=== PATIENT | female | born 1965 | race Caucasian/White ===

== ENCOUNTER 2020-10-22 12:50 | Outpatient (REF) | payer BC, SELFPAY ==
[2020-10-23 09:44] LABS: Hepatitis B Surface Ag Negative (Negative)
[2020-10-23 10:27] LABS: Hepatitis C Ab w Rflx HCV PCR Negative (Negative)
[2020-10-23 10:40] LABS: HIV-1/2 Ag & Ab Screen Negative (Negative)
[2020-10-23 11:18] LABS: Syphilis Serology (RPR) Negative (Negative)
[2020-10-23 14:13] LABS: Chlamydia Result Negative (Negative); GC Result Negative (Negative)
== END 2020-10-22 12:51 | disposition home or self-care (01) ==
LOC: NCHCN 12:50
PROVIDERS: Visit Provider Nurse Practitioner Family
DX: R30.9 Painful micturition, unspecified (principal); Z11.3 Encounter for screening for infections with a predominantly sexual mode of transmission; Z11.4 Encounter for screening for human immunodeficiency virus [HIV]; Z11.59 Encounter for screening for other viral diseases
CPT/HCPCS: 86803; 87340; 87389; 87491; 87591; 86592; 87480; 87510; 87660

== ENCOUNTER 2020-12-10 01:02 | Outpatient (CLI) | payer BC, SELFPAY ==
--- NOTE | 2020-12-10 07:30 | DI.US_ITS ---
Exam(s) US PELVIS TRANSVAGINAL EXAM: US PELVIS TRANSVAGINAL CLINICAL HISTORY: Heavy perimenopasual bleeding,N92.4 TECHNIQUE: Ultrasound of the pelvis was performed both transabdominal and transvaginal. COMPARISON: No exams were available for comparison FINDINGS: UTERUS: Measures 9 cm length x 5 cm AP x 6.5 cm wide. There is finding at the level the fundus which is probably a fibroid measuring 3.6 x 4.6 x 3.8 cm. Endometrial thickness measures 7 mm. There is no fluid in the endometrial canal. CERVIX: There are no obvious nabothian cysts. RIGHT OVARY: Measures 3.6 x 2.6 x 3.1 cm Contains what is either hemorrhagic or complicated cyst measuring 3 x 3.1 x 3.4 cm. Requires follow- up. No free fluid. LEFT OVARY: Measures 0.5 x 1.6 x 1.9 cm cm No significant cysts nor masses evident in the left ovary. CUL-DE-SAC: No free fluid evident. Incidentally noted is a 1.4 x 1.4 cm cortical cyst in the right kidney. IMPRESSION: 1. There is a 3.6 x 4.6 cm probable fibroid the uterine fundus. Endometrial thickness is upper ld l 2. Complicated or hemorrhagic cyst in the right ovary measuring 3 x 3.1 x 3.4 cm. Recommend follow-u p ultrasound affect appropriate clinical interval. 3. No free fluid evident in the adnexal regions and cul-de-sac. Incidentally noted is cyst in the right kidney measuring 1.4 x 1.4 cm DATA REPOSITORY:
--- NOTE | 2020-12-10 07:38 | DI.MAMMO_ITS ---
Exam(s) MAMMO SCREENING EXAM: MAMMO SCREENING CLINICAL HISTORY: breast cancer screening TECHNIQUE: Bilateral full field digital CC and MLO mammographic images were obtained with 3D tomosyn thesis and utilizing computer aided detection (CAD). COMPARISON: Available for comparison. FINDINGS: Masses/Architectural Distortion: None seen. Microcalcifications: No suspicious pleomorphic-type are seen. Skin Thickening/Nipple Retraction: None. IMPRESSION: 1. No significant interval change with no specific features of malignancy noted. 2. Unless there is more urgent need, screening mammography is recommended, as per [place] [employer] guidelines. BI-RADS Category 1 - Negative Breast Density - Category C - Heterogeneously dense Breast density category C or D implies that the patient has dense breast tissue. Dense breast tissue is very common and is not abnormal but dense breast tissue can make it harder to find cancer on a ma mmogram. Also, dense breast tissue may increase their breast cancer risk. This information about the result of the mammogram report was provided to the patient to raise their awareness. Use this report when you speak with the patient about their risks for breast cancer, which includes their family hist ory. At that time, you may recommend for more screening tests (Ultrasound or MRI) as they might be us eful based on their risk. A negative radiographic report should not delay biopsy if a dominant or clinically suspicious mass is present. Up to ten percent of cancers are not identified on mammography. A negative report may reinforce clinical impression. Adenosis and dense breasts may obscure an underlying neoplasm. False positive reports average 6 to 10%. Patient will receive a letter notifying them of these results.
== END 2020-12-10 01:22 ==
PROVIDERS: Visit Provider Obstetrics & Gynecology
DX: Z12.31 Encounter for screening mammogram for malignant neoplasm of breast (principal); N92.4 Excessive bleeding in the premenopausal period; D25.9 Leiomyoma of uterus, unspecified; N83.291 Other ovarian cyst, right side; N28.1 Cyst of kidney, acquired
CPT/HCPCS: 77063; 77067; 76830; 76856

== ENCOUNTER 2020-12-19 15:26 | Outpatient (REF) | payer BC, SELFPAY ==
--- NOTE | 2020-12-19 14:30 | PAPFT_PTH ---
PATIENT: Florecita Yang LOC: [facility] U#:[id number] AGE/SX: 55/F ROOM: RE12/19/[address]: Brooke Watts : 1965 BED: DIS: 12/19/2020 SPEC #: [id number] RECD: 12/19/20 17:39 STATUS: JEANNINE HOOD #: [id number] RAKESH: 12/19/20 14:[address]: Brooke Watts DEPT: [facility] Cytology RECD BY: Poornima Garcia Tissues: 1 - CX/ENDOCX FOR PAP SMEARS Procedures: PAP THIN PREP/UVM Screening HPV DNA PROBE Comments: [id number]
--- NOTE | 2020-12-19 14:30 | ENDOMET_PTH ---
PATIENT: Florecita Yang LOC: [facility] U#:[id number] AGE/SX: 55/F ROOM: RE12/19/[address]: Brooke Watts : 1965 BED: DIS: 12/19/2020 SPEC #: [id number] RECD: 12/19/20 17:35 STATUS: JEANNINE HOOD #: [id number] RAKESH: 12/19/20 14:[address]: Brooke Watts DEPT: Surgical Specimen RECD BY: Poornima Garcia Tissues: 1 - ENDOMETRIUM BX/SUZIE Procedures: GROSS AND MICRO LEVEL 4 Comments: [id number]
== END 2020-12-19 15:27 | disposition home or self-care (01) ==
LOC: LBN 15:26
PROVIDERS: Visit Provider Obstetrics & Gynecology Gynecology
DX: N85.8 Other specified noninflammatory disorders of uterus (principal); N93.8 Other specified abnormal uterine and vaginal bleeding; Z12.4 Encounter for screening for malignant neoplasm of cervix; Z11.51 Encounter for screening for human papillomavirus (HPV)
CPT/HCPCS: 88142; 88305; 87624

== ENCOUNTER 2021-02-24 20:51 | Emergency (ER) | payer OTHER, SELFPAY ==
[2021-02-24 21:04] VITALS: BP 149/83; PULSE 68; RESP 18; TEMP 36; O2SAT 97
--- NOTE | 2021-02-24 21:43 | W.ED.GENAD ---
Discharge Plan Disposition Patient Disposition: HOME Condition: Stable Discharge Details Clinical Impression: Acute viral syndrome Primary Care Provider: Unknown,Unknown ED Provider: Poornima Rosario Home Meds and New Rx's Prescriptions: Continued dexmethylphenidate [Focalin XR] 20 mg capsule,ER biphasic 50-50 20 mg PO DAILY RF: 0 Premarin 0.625 mg/gram cream 0.625 mg vaginal .COMPLEX Qty: 30 RF: 10 Discharge Instructions Additional Instructions: Please isolate until the results of your Covid test return, this can take up to 36 hours, will notify you if they are positive, you may also check your portal result Please return should you develop new or worsening complaints Stand Alone Forms: PENDING COVID-19 TESTING Discharge Data Discharge Date/Time-TO BE ENTERED AT DEPARTURE: 02/24/21 22:10 Medical Decision Making Patient instructed to isolate until her Covid test returns Stable vitals Return precautions discussed and patient expressed understanding, discharged home with oxygen saturation of 97%, respirations 18, pulse 68 Medical Records Medical records reviewed: Yes I reviewed the patient's medical records. HPI General Mode of arrival: ambulatory. Date/Time Provider Initiated Documentation: 02/24/21 21:43. Limitations to Documentation: no limitations. Information obtained by: patient. HPI Narrative: This 55-year-old female presents with report of sore throat 2 weeks ago. She states she just returned from [facility] and has had runny new, sore throat, and intermittent cough. She states that she is feeling well today aside from a mild sore throat. She denies any chest pain or shortness of breath. Her son is sick with similar symptoms. She denies fever or chills. She states she is otherwise healthy. She is not vaccinated for COVID-19. She denies known exposure. Denies globus sensation Related Data Home Medications Medication Instructions Recorded Confirmed dexmethylphenidate 20 mg 20 mg PO DAILY 11/16/20 12/19/20 capsule,extended release [id number] conjugated estrogens 0.625 mg/gram 0.625 mg VAGINAL .COMPLEX #30 g 01/25/21 01/25/21 vaginal cream Previous Rx's Medication Instructions Recorded conjugated estrogens 0.625 mg/gram 0.625 mg VAGINAL .COMPLEX #30 g 01/25/21 vaginal cream Allergies Allergy/AdvReac Type Severity Reaction Status Date / Time codeine Allergy Mild Verified 02/24/21 21:09 General Stated Complaint: Sorethroat ILENE: 4 Review of Systems All systems reviewed & are unremarkable except as noted in HPI and below PFSH Medical History (Updated 02/24/21 @ 21:48 by TOSHIA Sanchez) Ashkenazi Nondenominational ancestry requiring population-specific genetic screening Dyspareunia History of endometrial biopsy Perimenopausal menorrhagia Surgical History (Updated 12/19/20 @ 17:24 by Brooke Watts MD) Hx of section Social History (Updated 12/19/20 @ 17:25 by Brooke Watts MD) Smoking/Tobacco Use Status: Former Tobacco Use Quit Date: 07/21/96 Smoking risk assessment performed?: Yes Drug use: Never Household members: children and other Details: Son-15yo, Number of Children: 1 Do you feel safe at home: Yes Do you feel safe in your relationship?: Yes Exam Const General: cooperative, comfortable and no acute distress HENMT Other: Uvula midline, oropharynx patent Resp Effort & Inspection: normal respiratory effort Cardio Rate: regular rate Rhythm: regular rhythm Skin General skin exam: no rashes or lesions noted Neuro General: patient alert and patient oriented x3 Course Vital Signs Vital signs: Vital Signs Temperature 36 C L 02/24/21 21:04 Pulse 68 02/24/21 21:04 Respiratory Rate 18 02/24/21 21:04 Blood Pressure 149/83 H 02/24/21 21:04 Pulse Oximetry 97 02/24/21 21:04 Temperature 36 C L 02/24/21 21:04 Pulse 68 02/24/21 21:04 Respiratory Rate 18 02/24/21 21:04 Blood Pressure 149/83 H 02/24/21 21:04 Blood Pressure Position Sitting 02/24/21 21:04 Pulse Oximetry 97 02/24/21 21:04 Oxygen Delivery Method Room Air 02/24/21 21:04 Oxygen Flow Rate 0 02/24/21 21:04
[2021-02-26 14:07] LABS: COVID-19 RT-PCR UVMMC Result Negative (Negative)
--- NOTE | 2021-02-26 17:03 | NUR.NOTE ---
Nursing Note: Received call from patient inquiring about covid results. Pt was notified that her covid test was negative.
== END 2021-02-24 22:10 | disposition home or self-care (01) ==
PROVIDERS: Emergency Provider Physician Assistant
DX: B34.9 Viral infection, unspecified (principal); R05 Cough; Z20.822 Contact with and (suspected) exposure to COVID-19
CPT/HCPCS: 99281; U0003; U0005; 99282

== ENCOUNTER 2021-08-19 14:05 | Outpatient (REF) | payer OTHER, SELFPAY | END 2021-08-19 14:06 | disposition home or self-care (01) | LOC: LBN 14:05 | PROVIDERS: Visit Provider Family Medicine | DX: R35.0 Frequency of micturition (principal) | CPT/HCPCS: 87086 ==

== ENCOUNTER 2022-11-21 00:37 | Outpatient (CLI) | payer OTHER, SELFPAY ==
--- NOTE | 2022-11-21 | DI.MAMMO_ITS ---
Exam(s) MAMMO SCREENING EXAM: MAMMO SCREENING CLINICAL HISTORY: SCREENING,[facility],Z00.00. TECHNIQUE: Bilateral full field digital CC and MLO mammographic images were obtained with 3D tomosyn thesis and utilizing computer aided detection (CAD). COMPARISON: Prior mammograms were reviewed. FINDINGS: There has been no significant change in the appearance and distribution of the fibroglandular tissue. Asymmetric densities in both breasts are unchanged from prior mammograms. There are no obvious new spiculated masses nor malignant appearing microcalcification groups. There is no significant architectural distortion nor skin thickening-retraction. IMPRESSION: Dense bilateral fibroglandular tissue. No obvious radiographic evidence of malignancy nor significan t change compared to prior mammograms.. BI-RADS Category 2 - Benign Findings Breast Density - Category C - Heterogeneously dense Breast density Category C or D implies that the patient has dense breast tissue. Dense breast tissue can make it harder to find cancer on a mammogram. Dense breast tissue is also associated with an incr eased risk of breast cancer. This information about the result of the mammogram report was provided to the patient to raise their awareness. Use this report when you speak with the patient about their risks for breast cancer, which includes their family history. At that time, you may recommend additional screening tests (Ultrasoun d or MRI) as these tests may add significant information. A negative radiographic report should not delay biopsy if a dominant or clinically suspicious mass is present. Up to ten percent of cancers are not identified on mammography. A negative report may reinforce clinical impression. Adenosis and dense breasts may obscure an underlying neoplasm. False positive reports average 6 to 10%. Patient will receive a letter notifying them of these results.
== END 2022-11-21 00:57 ==
LOC: DI 00:37
PROVIDERS: PCP Nurse Practitioner Family; Visit Provider Nurse Practitioner Family
DX: Z00.00 Encounter for general adult medical examination without abnormal findings (principal); R92.8 Other abnormal and inconclusive findings on diagnostic imaging of breast
CPT/HCPCS: 77063; 77067

== ENCOUNTER 2023-02-06 09:10 | Day surgery (SDC) | payer OTHER, SELFPAY ==
--- NOTE | 2023-02-05 15:58 | W.COLOREPORT ---
Date of service: 02/06/23 Time of Service: 10:44 Colonoscopy Report Date of procedure: 02/06/23 Pre-op diagnosis general: Colorectal cancer screening Post-op diagnosis procedure note: same Surgeon: Cassie Valencia Anesthesia Type: General:No Airway Estimated blood loss (mL): 0 Pathology: none sent Complications: None Disposition: same day Prep: Miralax/Dulcolax Retraction Time: 7 Procedure Description: After informed consent was obtained the patient was taken to the procedure room and placed in a left decubitous position. Monitors were applied and a time out was done. The patients name, date of , procedure, allergies to medications and metal in their body was reviewed. The patient was then sedated. Once sedated and comfortable a rectal exam was done. External exam was normal. Internal exam revealed a normal sphincter tone and no palpable masses. The scope was then introduced and retrofelexed. No internal hemorrhoids were identified. The scope was then advanced to the cecum w/ some difficulty. Her colon was rather tortuous and it was difficult to maneuver into the right colon. The TI and appendiceal orifice were identified. The prep was BBPS 3 in all segments for a total of 9. The scope was then slowly retracted over 7 minutes back into the rectum. There are no polyps, AVMs, or diverticula visualized. Mucosa is pink and healthy with a normal vascular pattern.. The scope was removed and the patient was woken up and taken back to Same day surgery in stable condition. The patient tolerated the procedure well and there were no immediate complications. Follow up: The patient should follow up in 10 years unless they develop changes in bowel habits or other new gastrointestinal complaints.
--- NOTE | 2023-02-05 15:59 | PDOC.DSDIS_ITS ---
Date of service: 02/06/23 Time of Service: 10:43 Discharge Plan Disposition Patient Disposition: Home Condition: Good Discharge Details Reason For Visit: Colonoscopy Attending Provider: Cassie Valencia Primary Care Provider: None,None Home Meds and New Rx's Prescriptions: Discontinued bisacodyl [Dulcolax (bisacodyl)] 5 mg tablet,delayed release (DR/EC) 5 mg PO ONCE Qty: 4 0RF Rx Instructions: Take per colonoscopy instructions provided by ordering providers office polyethylene glycol 3350 17 gram/dose powder 17 g PO ONCE Qty: 238 0RF Rx Instructions: Take per colonoscopy instructions provided by ordering providers office No Action dexmethylphenidate [Focalin XR] 20 mg capsule,ER biphasic 50-50 20 mg PO DAILY Premarin 0.625 mg/gram cream 0.625 mg vaginal .COMPLEX Qty: 30 10RF Rx Instructions: 0.625 mg vaginal twice weekly Discharge Instructions Additional Instructions: DSU Colonoscopy Post- Op Instructions Instructions for Everyone who is given Anesthesia: For your safety, please do the following for the next twenty-four (24) hours: *Do Not operate a motor vehicle (car, truck, motorcycle, etc.) *Do Not drink alcoholic beverages or use any recreational drugs for the first 24 hours or while taking pain medications. The medications in your body may have a reaction that can be dangerous. *Do Not make any important decisions or sign any important papers. Findings: Normal scope Follow up: Repeat in 10 years time Of course, you should continue to have a yearly physical exam including a rectal exam. If you should ever notice any pain or difficulty having a bowel movement, blood in the stool, unexplained weight loss, or change in your bowel habits, please contact your health provider 1. No lifting over 20 pounds or strenuous activity for the first 24 hours after your procedure. After 24 hours there are no restrictions on your activity but you may feel fatigued for a few days. 2. After you arrive home you may have a light meal and return to your normal d iet as you can tolerate it without feeling sick to your stomach. 3. You may have a bloated, gaseous feeling in your belly (abdomen) after a colonoscopy. Passing gas and belching will help. Walking or lying down on your left side with your knees flexed may relieve the discomfort. Call the office at [phone] (Office) or [phone] (Hospital) right away if you notice any of the following: a.Vomiting of blood or ?coffee ground stools?. b.Rectal bleeding 1Tbsp, blood clots or continuous bleeding. c.Severe belly (abdominal) pain. d.A hard distended belly (abdomen) and an inability to pass gas. 4. Please don?t expect to have a normal BM (bowel movement) for 2-3 days after your procedure. 5. If there are questions regarding the findings of your procedure, please contact your doctor 6. If you are unable to contact your doctor with a problem, contact the hospital at [phone]. 7. Continue all your regular medications unless directed otherwise. I understand the above instructions and have no questions. Signature of Patient or Adult Escort Name of Responsible Adult Escort Signature of Nurse Date/Time Activity:: See above Diet:: See above Discharge Orders Discharge Orders: Discharge Order (Routine); Ordered 02/06/23 Ordered By: Cassie Valencia DS: Diagnosis Discharge Diagnosis (1) Screening for malignant neoplasm of colon performed: Status: Acute Asessment and Plan: The patient is seen and examined after their colonoscopy.? The patient has been able to pass gas.? They are not having abdominal pain.? They have been able to tolerate liquids and a snack.? They do not have any nausea or vomiting.? They are not having any chest pain or shortness of breath.??? They are not having any rectal bleeding. Their vital signs have been stable-see nursing notes. We discussed findings during their colonoscopy, and any biopsies that were done/polyps that were removed. The patient will be sent a letter with any biopsy results, and when to repeat the colonoscopy.-see discharge instructions. Patient was given explicit instructions to follow-up regarding colonoscopy-refer to discharge instructions.? We reviewed resumption of medications. Patient verbalized understanding and discharged in stable and satisfactory condition- See nursing notes.
--- NOTE | 2023-02-06 06:18 | W.ANESPRE ---
General Info Date of Service Date Performed: 02/06/23 Height: 5 ft 3 in Weight: 56.699 kg Body Mass Index (BMI): 22.1 Surgical Procedure: Operation Date: 02/06/23 09:50 Proposed Procedure Side Surgeon jadiel Valencia, Meds Allergies and Home Medications Allergies Allergy/AdvReac Type Severity Reaction Status Date / Time codeine Allergy Mild Verified 02/06/23 09:29 Home Medication Medication Instructions Recorded conjugated estrogens 0.625 mg/gram 0.625 mg vaginal .COMPLEX #30 grams 03/12/22 vaginal cream (Premarin) dexmethylphenidate 20 mg 20 mg PO DAILY 01/22/23 capsule,extended release [id number] (Focalin XR) Current Visit Medications: Current Medications Generic Name Dose Route Start Last Admin Trade Name Freq PRN Reason Stop Dose Admin Hyoscyamine Sulfate 0.125 mg 02/06/23 06:59 Hyoscyamine 0.125 Mg Sl/Oral/Chew SL 03/08/23 06:58 DIRECTED PRN Ringer's Solution 1,000 mls @ 80 mls/hr 02/06/23 06:00 IV 02/06/23 16:00 [facility]ION [facility] IV Miscellaneous Supplies 1 each 02/06/23 06:00 Iv Access IV 02/06/23 16:00 DIRECTED MARVIN Ondansetron HCl 4 mg 02/06/23 06:59 Ondansetron 4 Mg/2 Ml Vial IVP 03/08/23 06:58 Q4H PRN PRN Nausea / Vomiting Sodium Chloride 0 ml 02/06/23 06:00 Normal Saline Flush 10 Ml Syr IV 02/06/23 16:00 PRN PRN Sodium Chloride 0 ml 02/06/23 06:00 Normal Saline 10 Ml Vial IJ 02/06/23 16:00 DIRECTED PRN Sterile Water 0 ml 02/06/23 06:00 Water,Injection,Sterile 10 Ml Vial IJ 02/06/23 16:00 DIRECTED PRN PFSH Active Problems Active Problems: Problem Status Onset Code Screening for malignant neoplasm of colon performed Z12.11 ADHD F90.9 Screening for colon cancer Z12.11 Acute viral syndrome B34.9 History of endometrial biopsy Z92.89 Cyst of right ovary N83.201 Encounter for counseling regarding contraception Z30.09 Ashkenazi Mu-Ism ancestry requiring population-specific genetic screening Z13.79 Dyspareunia Perimenopausal menorrhagia N92.4 Surgical History Surgical History Hx of section Tobacco Smoking/Tobacco Use Status: Former Tobacco Use Alcohol Alcohol Intake: current Alcohol intake frequency: a few times a month Substance Use Substance use: Never Substance use type: does not use Vital Signs and Lab Results Vital Signs Most Recent Vital Signs in EMR: Temp Pulse Resp BP Pulse Ox 36.7 C 50 L 18 120/79 100 02/06/23 09:21 02/06/23 09:21 02/06/23 09:21 02/06/23 09:21 02/06/23 09:21 Lab Results Blood Type / Crossmatch: No Data to Display Complete Blood Count: No Data to Display Complete Metabolic Panel: No Data to Display Liver Function Panel: No Data to Display Coagulation Panel: No Data to Display Cardiac Panel: No Data to Display Arterial Blood Gas: No Data to Display Venous Blood Gas: No Data to Display Pancreas Panel: No Data to Display Thyroid Panel: No Data to Display Infectious Disease: No Data to Display Blood Cultures: No Data to Display Toxicology Panel: No Data to Display Anesthesia Assessment and Plan Anesthesia History Personal History: No History of Anesthesia Complications Family History: No Family History of Anesthesia Complications Exercise Tolerance Exercise Tolerance: Metabolic Equivalents>4 Cardiac & Pulmonary Exam Cardiac Exam: Normal S1/S2 Heart Sounds Pulmonary Exam: Clear Bilateral Breath Sounds Implantable Cardiac Device Does patient have a Pacemaker or an ICD?: No Airway Exam Known Difficult Airway: No Mallampati Class: 2 Mouth Opening: Normal (> 3cm) Thyromental Distance: Greater than 3 cm Neck Range of Motion: Full ROM Neck Circumference: Normal Teeth Condition: Normal Dentition ASA Classification ASA Score: ASA 2 Emergency Case?: No NPO Status NPO Status: NPO Clears >2 hours, Solids >8 hours Anesthesia Plan Resuscitation Status: Full Code Anesthesia Technique: General Anesthesia Airway Planned: Natural Airway Monitors Used: Standard Monitors Preoperative Comments:: 57 female colo. Sig PMHx: ADHD, former smoker, occ EtOH.
[2023-02-06 09:21] VITALS: BP 120/79; PULSE 50; RESP 18; TEMP 36.7; O2SAT 100
[2023-02-06 09:32] VITALS: BMI 22.1
[2023-02-06] MEDS: Lactated Ringers 1,000 ML 80 ML IV (09:39)
[2023-02-06 10:28] VITALS: BP 117/66; PULSE 55; RESP 18; TEMP 36.6; O2SAT 99
--- NOTE | 2023-02-06 10:43 | W.ANESPOSTOP ---
Postoperative Evaluation Date, Time and Location Date Performed: 02/06/23 Time Performed: 10:44 Patient Location: Day Surgery Unit Vital Signs Most Recent Imported Vital Signs: Most Recent Vital Signs Temp Pulse Resp BP Pulse Ox 36.6 C 55 L 18 117/66 99 02/06/23 10:28 02/06/23 10:28 02/06/23 10:28 02/06/23 10:28 02/06/23 10:28 Pain Score Most Recent Pain Score: Most Recent Pain Score Pain Level 0 02/06/23 10:28 Assessment Mental Status: Awake (Alert & Oriented to Patient Baseline) Airway and Respiratory Function: Patent airway with normal (patient baseline) respiratory exam Cardiovascular Function: Hemodynamically Stable Hydration Status: Adequately Hydrated Nausea & Vomiting: No Nausea or Vomiting Pain: Pt. Denies Any Pain Peripheral Nerve Block: Patient did not receive a nerve block
[2023-02-06 10:59] VITALS: BP 111/74; PULSE 56; RESP 18; TEMP 36.6; O2SAT 98
== END 2023-02-06 11:51 | disposition home or self-care (01) ==
PROVIDERS: Visit Provider Surgery
PROC: 0DJD8ZZ Inspection of Lower Intestinal Tract, Via Natural or Artificial Opening Endoscopic (ICD-10-PCS; CPT 45378; principal; 2023-02-06 09:45)
DX: Z12.11 Encounter for screening for malignant neoplasm of colon (principal)
CPT/HCPCS: 45378; J2001

== ENCOUNTER 2023-08-12 15:03 | Outpatient (REF) | payer OTHER, SELFPAY ==
--- NOTE | 2023-08-12 15:00 | ENDOMET_PTH ---
PATIENT: Florecita Yang LOC: [facility] U#:[id number] AGE/SX: 58/F ROOM: RE08/12/[address]: Brooke Watts : 1965 BED: DIS: 08/12/2023 SPEC #: [id number] RECD: 08/12/23 17:27 STATUS: JEANNINE REVasquez #: [id number] RAKESH: 08/12/23 15:[address]: Brooke Watts DEPT: Surgical Specimen RECD BY: Poornima Garcia Tissues: 1 - ENDOMETRIUM BX/SUZIE Procedures: GROSS AND MICRO LEVEL 4 Comments: [id number]
== END 2023-08-12 15:04 | disposition home or self-care (01) ==
LOC: LBN 15:03
PROVIDERS: PCP Obstetrics & Gynecology Gynecology; Visit Provider Obstetrics & Gynecology Gynecology
DX: N95.0 Postmenopausal bleeding (principal); N85.8 Other specified noninflammatory disorders of uterus; N85.01 Benign endometrial hyperplasia
CPT/HCPCS: 88305

== ENCOUNTER → 2024-01-26 01:28 | Outpatient (CLI) | payer OTHER, SELFPAY ==
--- NOTE | 2024-01-26 | DI.MAMMO_ITS ---
Exam(s) MAMMO SCREENING EXAM: MAMMO SCREENING CLINICAL HISTORY: SCREENING Z12.31 TECHNIQUE: Mammograms were interpreted according to the usual protocol including computer analysis w [employer] CAD system, tomosynthesis and C-view imaging. COMPARISON: 2015 through 2022 FINDINGS: The breasts are composed of heterogeneously dense fibroglandular densities, Breast Density category C . Left breast: No suspicious masses or suspicious microcalcifications are seen. No skin thickening or abnormal axillary lymph nodes are seen. There has been no significant change from prior exams. Right breast: There is an area nodularity with architectural distortion and some associated calcifications in the u pper inner quadrant, 9 cm posterior to the nipple. Spot compression views and ultrasound are request ed for further evaluation. No skin thickening or abnormal axillary lymph nodes. IMPRESSION: BI-RADS Category 0 - Assessment Incomplete: Need additional imaging evaluation of the right breast. Breast Density Category C, heterogeneously Dense. The mammogram demonstrates the patient's breast tissue is dense. Dense breast tissue is very common a nd is not abnormal but dense breast tissue can make it harder to find cancer on a mammogram. Also, de nse breast tissue may increase breast cancer risk. This information about the result of the mammogram report was provided to the patient to raise their awareness. Use this report when you speak with the patient about their risks for breast cancer, which includes their family history. At that time, you may recommend additional screening tests (Ultrasound or MRI) as they might be useful based on their r isk. A negative radiographic report should not delay biopsy if a dominant or clinically suspicious mass is present. Up to ten percent of cancers are not identified on mammography. A negative report may reinforce clinical impression. Adenosis and dense breasts may obscure an underlying neoplasm. False positive reports average 6 to 10%.
== END ==
PROVIDERS: PCP Obstetrics & Gynecology Gynecology; Visit Provider Family Medicine
DX: Z12.31 Encounter for screening mammogram for malignant neoplasm of breast (principal); R92.8 Other abnormal and inconclusive findings on diagnostic imaging of breast; R92.333 Mammographic heterogeneous density, bilateral breasts
CPT/HCPCS: 77063; 77067

== ENCOUNTER → 2024-01-27 09:48 | Outpatient (CLI) | payer OTHER, SELFPAY ==
--- NOTE | 2024-01-27 | DI.MAMMO_ITS ---
Exam(s) MG MAMMO SCREEN CALL BACK UNI US BREAST RT LIMITED EXAM: MG MAMMO SCREEN CALL BACK UNI CLINICAL HISTORY: F/U MAMMO, R92.8, RT BREAST NODULARITY. TECHNIQUE: Craniocaudal and mediolateral oblique spot compression digital Mammography views of the r ight breast followed by Tomosynthesis and right breast ultrasound. COMPARISON: US US BREAST RT LIMITED from 01/27/2024 FINDINGS: Mammography/Tomosynthesis: Masses/Architectural Distortion: Persistent area of spiculation and a few associated calcifications a re noted in the upper inner quadrant right breast, in the posterior tissue. Microcalcifictions: A few calcifications are associated with the area of spiculation. Skin Thickening/Nipple Retraction: None. Right breast US: Echotexture: Normal appearance of the glandular tissue. Shadowing: Shadowing foci are associated with the spiculated mass in the upper inner quadrant. Cyst: None. Solid lesions: Spiculated shadowing mass noted in the upper inner quadrant, 5 cm from the nipple. It measures approximately 6 by 8 by 7 millimeters. Ductal dilation: None. IMPRESSION: 1. No suspicious spiculated mass in the upper inner quadrant of the right breast. 2. Biopsy is recommended. This could be performed under ultrasound guidance. 3. The findings were discussed with the patient on the date of the examination. Findings called to t tyrell referring provider's office. BI-RADS Category 5 - Highly Suggestive of Malignancy: Biopsy recommended Breast Density - Category C - Heterogeneously dense A mammogram that demonstrates density of C or D indicates the patient's breast tissue is dense. Dense breast tissue is very common and is not abnormal, but dense breast tissue can make it harder to find cancer on a mammogram. Also, dense breast tissue may increase their breast cancer risk. This informa tion about the result of the mammogram report was provided to the patient to raise their awareness. U se this report when you speak with the patient about their risks for breast cancer, which includes th eir family history. At that time, you may recommend for more screening tests (Ultrasound or MRI) as t hey might be useful based on their risk. A negative radiographic report should not delay biopsy if a dominant or clinically suspicious mass is present. Up to ten percent of cancers are not identified on mammography. A negative report may reinforce clinical impression. Adenosis and dense breasts may obscure an underlying neoplasm. False positive reports average 6 to 10%. Patient will receive a letter notifying them of these results.
== END ==
PROVIDERS: PCP Obstetrics & Gynecology Gynecology; Visit Provider Family Medicine
DX: R92.8 Other abnormal and inconclusive findings on diagnostic imaging of breast (principal); R92.331 Mammographic heterogeneous density, right breast
CPT/HCPCS: 76642; 77063; 77067

== ENCOUNTER → 2024-02-08 01:05 | Outpatient (CLI) | payer OTHER, SELFPAY ==
--- NOTE | 2024-02-08 | DI.US_ITS ---
Exam(s) US NEEDLE LOCAL BREAST WO RAD EXAM: US NEEDLE LOCAL BREAST WO RAD CLINICAL HISTORY: Rt breast mass,ULTRASOUND GUIDED BX. Right Breast. TECHNIQUE: Ultrasound guidance was performed for ultrasound-guided biopsy. COMPARISON: US US BREAST RT LIMITED from 01/27/2024 FINDINGS: Ultrasound guidance was provided for the surgeon for biopsy of previously described finding at the 1 o'clock position of the right breast. Submitted images reveal 4 passes into the targeted nodule. Th ereafter a biopsy marker clip was placed. IMPRESSION: Ultrasound guided biopsy as above.
--- NOTE | 2024-02-08 14:50 | BREAST_PTH ---
PATIENT: Florecita Yang LOC: [facility] U#:[id number] AGE/SX: 60/F ROOM: RE02/08/[address]: Jose Dominguez MD : [id number] BED: DIS: SPEC #: [id number] RECD: 02/08/24 17:33 STATUS: JEANNINE HOOD #: [id number] RAKESH: 02/08/24 14:[address]: Jose Dominguez DEPT: Surgical Specimen RECD BY: Poornima Garcia ENTERED: 02/08/24 17:34 SP TYPE: Breast OTHR DR: Brooke Watts Tissues: 1 - BREAST BX NEEDLE Procedures: GROSS AND MICRO LEVEL 4 IMMUNOPEROXIDASE STAIN [id number] IPEX ESTROGEN/PROGESTERONE RECEPTOR IPEX STAIN Comments: [id number]
[2024-02-08] MEDS: Lidocaine 1% Pres-Free 5 ML VIAL IJ (15:11)
--- NOTE | 2024-02-08 16:12 | W.PROCNOTE ---
Date of service: 02/08/24 Time of Service: 14:50 Procedure Note Date of procedure: 02/08/24 Procedure: Ultrasound-guided core needle biopsy of right breast Surgeon/Proceduralist/Physician: Jose Dominguez Procedure Diagnosis: Right breast lesion with microcalcifications Procedure Indications: Florecita is a 58-year-old woman who underwent routine screening mammography that demonstrated a right breast mass with microcalcifications. This was followed up with an ultrasound that confirmed the presence of that lesion. She was recommended to undergo ultrasound-guided core needle biopsy Procedure Description: I met with Florecita in the ultrasound area, and we discussed the findings of her recent ultrasound, and the plan for core needle biopsy today. I explained the nature of the procedure, what to expect in terms of the actual procedure itself as well as the recovery. I explained the risks and benefits of the procedure, and she was able to provide consent. Next, with the assistance of the infrastructure technician, we performed a limited ultrasound of the right breast. In the upper inner quadrant was a lesion that was seen on the previous ultrasound. Next, I prepped the skin adjacent to the probe, and anesthetize the trajectory of the biopsy with local anesthetic. I then made a small incision in the skin using an 11 blade scalpel. Next, with a 22 mm Bard core needle biopsy device I obtained 3 specimens of the area in question, all under real-time ultrasound guidance. Finally, I placed a radiopaque marker in the area of the biopsies. The needles were all removed, and a Band-Aid was applied. Post procedure instructions and recovery expectations were explained, and Florecita was discharged home with plan to follow-up once the biopsy results are available.
--- NOTE | 2024-02-11 16:22 | W.PM.PROGNOT ---
Date of Service Date of service: 02/11/24 Time of Service: 16:23 Assessment and Plan Assessment and plan (1) Ductal carcinoma of breast: Status: Acute Assessment and plan: I did review with the patient her biopsy results which show invasive ductal nuclear grade 1-2. Estrogen receptor and progesterone receptor is and HER2/osbaldo are not back yet. From briefly reviewing her films and looking at her chart it looks like she is a candidate for lumpectomy and sentinel lymph node biopsy. I briefly discussed this with her. I discussed with her that a lot of of the adjuvant follow-up therapy depends on what we see in the surgical specimen give us a better idea once we see the genetics of the tumor. The pathology in [facility]. I will have her follow-up with Dr. Dominguez on Thursday and then can further discuss surgery going forward. Time Spent with Patient Time Spent with Patient: <25 minutes Time was spent: preparing to see the patient(eg.review tests), obtaining and/or reviewing separately otained hiistory, ordering medications,tests, procedures, referring, communicating with other health restorative care technician, indepentently interpreting results, counseling the patient, care coordination and other
== END ==
PROVIDERS: PCP Obstetrics & Gynecology Gynecology; Visit Provider Surgery
DX: C50.211 Malignant neoplasm of upper-inner quadrant of right female breast (principal)
CPT/HCPCS: 19083; 88305; 88360; 76942; 88361; J2003